=== PATIENT | male | born 1985 | race Two or more races ===

== ENCOUNTER 2019-09-10 10:27 | Emergency (ER) | payer OTHER ==
[~2019-09-10] VITALS: Ht 182.9 cm; Wt 90.7 kg
[2019-09-10] MEDS ORDERED: TETANUS-DIPTH-ACEL PERTUSSIS 0.5ML SYRG IM ONE (11:00)
[2019-09-10] MEDS ORDERED: LIDOCAINE 1% HCL (LOCAL ANESTH.) INJ 20ML MDV ONE (11:01)
[2019-09-10] MEDS ORDERED: cefTRIAXone 1GM/50ML D5W 50 ML IV ONE (12:45)
[2019-09-10 13:00] VITALS: BP 127/76
== END 2019-09-10 15:06 | disposition home or self-care (01) ==
LOC: EDBD 10:27 → ER 10:27 → EEVIPCON 10:27 → ER 15:06
DX: S01.01XA Laceration without foreign body of scalp, initial encounter (principal); S01.81XA Laceration without foreign body of other part of head, initial encounter; S13.9XXA Sprain of joints and ligaments of unspecified parts of neck, initial encounter; X58.XXXA Exposure to other specified factors, initial encounter; Y93.89 Activity, other specified; Y92.89 Other specified places as the place of occurrence of the external cause; Y99.8 Other external cause status
CPT/HCPCS: 12005; 12015; 70450; 90471; 90715; 96365; 99284; J0696; J2001; J7030